=== PATIENT | female | born 1950 | race Caucasian/White ===

== ENCOUNTER 2017-04-25 19:06 | Emergency (ER) | payer MEDICARE, OTHER ==
[~2017-04-25] VITALS: Ht 167.6 cm; Wt 70.5 kg
[2017-04-25 19:12] VITALS: BP 165/86
[2017-04-25] MEDS ORDERED: MONT10TA2 (19:19)
[2017-04-25] MEDS ORDERED: tumeric PO (19:19)
[2017-04-25] MEDS ORDERED: VALS1TAB46 (19:19)
[2017-04-25] MEDS ORDERED: MULTLIQ7 PO (19:19)
[2017-04-25] MEDS ORDERED: FLUTISP (19:19)
--- NOTE | 2017-04-26 07:58 | REP ---
Left foot : There is no fracture or dislocation. Mineralization and joint spaces are normal. There are no calcifications or foreign bodies. Impression: Negative left foot. A calcaneal plantar spur is incidentally noted. . Signed by Chris Russell MD 04/26/2017 07:49 A
== END 2017-04-25 21:41 | disposition home or self-care (01) ==
LOC: M ED 19:06
DX: S93.602A Unspecified sprain of left foot, initial encounter (principal); J45.909 Unspecified asthma, uncomplicated; X58.XXXA Exposure to other specified factors, initial encounter; Y92.9 Unspecified place or not applicable; Y99.9 Unspecified external cause status; Z88.2 Allergy status to sulfonamides; Z79.899 Other long term (current) drug therapy

== ENCOUNTER → 2018-03-02 | Outpatient (REF) | payer MEDICARE, OTHER | LOC: M LAB REF 09:54 | DX: J02.9 Acute pharyngitis, unspecified (principal) | CPT/HCPCS: 87081 ==

== ENCOUNTER → 2018-06-24 | Outpatient (REF) | payer MEDICARE, OTHER ==
[2018-06-24 13:18] LABS: FERRITIN 40 NG/ML (8-252); IRON (FE) 95 UG/DL (50-170); PERCENT SATURATION 27.3 % (13.2-45.0); TOTAL IRON BINDING CAPACITY 348 UG/DL (250-450)
== END ==
LOC: M LAB REF 12:30
DX: D64.9 Anemia, unspecified (principal)
CPT/HCPCS: 83550

== ENCOUNTER → 2019-03-03 | Outpatient (REF) | payer MEDICARE, OTHER ==
[~2019-03-03] MED LIST: FLUTISP; MONT10TA2; MULTLIQ7 PO; VALS1TAB66; tumeric PO
[2019-03-03 19:14] LABS: PERCENT SATURATION 19.9 % (13.2-45.0)
== END ==
LOC: M LAB REF 17:02
PROVIDERS: ATTEND Internal Medicine
DX: D64.9 Anemia, unspecified (principal)

== ENCOUNTER → 2020-05-09 | Outpatient (REF) | payer MEDICARE, OTHER ==
[~2020-05-09] MED LIST changes: +IRBE150T7; -MONT10TA2; +MONT10TA4
[2020-06-23 12:02] LABS: PERCENT SATURATION 16.1 % (13.2-45.0)
== END ==
LOC: M LAB REF 16:50
PROVIDERS: ATTEND Internal Medicine
DX: D64.9 Anemia, unspecified (principal); G60.9 Hereditary and idiopathic neuropathy, unspecified

== ENCOUNTER 2020-06-12 11:03 | Emergency (ER) | payer MEDICARE, OTHER ==
[~2020-06-12] VITALS: Ht 165.1 cm; Wt 71.8 kg
[~2020-06-12 11:03] MED LIST changes: -IRBE150T7
[2020-06-12] MEDS ORDERED: IRBE150T7 (11:19)
[2020-06-12] MEDS ORDERED: ONDANSETRON 4MG/2ML VIAL IV ONE (11:30)
[2020-06-12] MEDS: MORPHINE 4 MG/ML 1ML VIAL/SYRINGE (J2270) IV PRN ×2 (11:41→12:22)
--- NOTE | 2020-06-12 11:49 | REPVR ---
PROCEDURE INFORMATION: Exam: XR Chest, 1 View Exam date and time: 06/12/2020 11:19 AM Age: 69 years old Clinical indication: Shortness of breath; Additional info: Chest pain TECHNIQUE: Imaging protocol: XR of the chest Views: Frontal portable sitting upright view of the chest. COMPARISON: No relevant prior studies available. FINDINGS: Tubes, catheters and devices: EKG leads are present overlying the chest. Lungs: Lingular pulmonary subsegmental atelectasis. The lungs are otherwise peripherally clear bilaterally. The pulmonary vasculature is normal. Pleural space: No pleural effusion. No pneumothorax. Heart/Mediastinum: The heart is normal in size and contour. Vasculature: Mild tortuosity of the lower descending thoracic aorta. Bones/joints: No acute abnormality identified. IMPRESSION: Lingular pulmonary subsegmental atelectasis. Electronically signed by: Mayur Stapleton On 06/12/2020 11:49:52 AM
[2020-06-12 11:52] LABS: BASO # 0.1 10^3/uL (0.0-0.2); BASO % 0.6 % (0.0-1.0); EOS # 0.2 10^3/uL (0.0-0.5); EOS % 1.9 % (0.0-3.0); HEMATOCRIT 35.3 % (36.0-47.0); HEMOGLOBIN 11.8 g/dl (12.0-15.5); LYMPH # 1.8 10^3/uL (1.5-5.0); LYMPH % 20.4 % (24.0-44.0); MEAN CORPUSCULAR HEMOGLOBIN 29.4 pg (27.0-33.0); MEAN CORPUSCULAR HGB CONC 33.4 g/dl (32.0-36.5); MEAN CORPUSCULAR VOLUME 87.8 fl (80.0-96.0); MONO # 0.8 10^3/uL (0.0-0.8); MONO % 9.3 % (0.0-5.0); NEUTROPHILS # 5.9 10^3/uL (1.5-8.5); NEUTROPHILS % 67.5 % (36.0-66.0); PLATELET COUNT, AUTOMATED 278 10^3/uL (150-450); RED BLOOD COUNT 4.02 10^6/uL (4.00-5.40); WHITE BLOOD COUNT 8.7 10^3/uL (4.0-10.0)
[2020-06-12] MEDS ORDERED: HEPARIN DRIP 25,000 UNITS in IV 1 EA IV SCH (11:53)
[2020-06-12] MEDS ORDERED: ISOVUE-370 76% 100ML VIAL As Ordered ONE (11:53)
[2020-06-12] MEDS ORDERED: TENECTEPLASE 50 MG KIT (TNKase) (J3101 PER 1MG) IV ONE (12:00)
[2020-06-12] MEDS ORDERED: CLOPIDOGREL 300 MG TAB (PLAVIX) PO ONE (12:00)
[2020-06-12] MEDS ORDERED: HEPARIN SOD (PORCINE) 5000UNITS/ML 1ML VIAL/SYRINGE IV ONE (12:00)
[2020-06-12 12:02] LABS: INR 0.92; PROTHROMBIN TIME 12.5 SECONDS (11.8-14.0)
[2020-06-12 12:23] LABS: ALBUMIN 3.6 GM/DL (3.2-5.2); ALT/SGPT 15 U/L (12-78); BILIRUBIN,DIRECT 0.1 MG/DL (0.0-0.2); BILIRUBIN,TOTAL 0.4 MG/DL (0.2-1.0); BLOOD UREA NITROGEN 27 MG/DL (7-18); CALCIUM LEVEL 9.3 MG/DL (8.8-10.2); CARBON DIOXIDE LEVEL 25 MEQ/L (21-32); CHLORIDE LEVEL 109 MEQ/L (98-107); CREATININE FOR GFR 0.94 MG/DL (0.55-1.30); GLOMERULAR FILTRATION RATE > 60.0 (>45); GLUCOSE, FASTING 136 MG/DL (70-100); LIPASE 79 U/L (73-393); NT-PRO BNP 204 PG/ML (<125); SODIUM LEVEL 140 MEQ/L (136-145); THYROID STIMULATING HORMONE 0.807 uIU/ML (0.358-3.740); TOTAL PROTEIN 6.9 GM/DL (6.4-8.2)
--- NOTE | 2020-06-12 12:26 | REPVR ---
PROCEDURE INFORMATION: Exam: CT Angiography Chest With Contrast Exam date and time: 06/12/2020 11:59 AM Age: 69 years old Clinical indication: Chest pain and other: R/O dissection; Type not specified; Additional info: R/O dissction TECHNIQUE: Imaging protocol: Computed tomographic angiography of the chest with intravenous contrast. 3D rendering (Not supervised by radiologist): MIP and/or 3D reconstructed images were created by the technologist. Radiation optimization: All CT scans at this facility use at least one of these dose optimization techniques: automated exposure control; mA and/or kV adjustment per patient size (includes targeted exams where dose is matched to clinical indication); or iterative reconstruction. Contrast material: ISOVUE 370; Contrast volume: 75 ml; Contrast route: INTRAVENOUS (IV); COMPARISON: CR PORTABLE CHEST X-RAY 06/12/2020 11:34 AM FINDINGS: Pulmonary arteries: Normal. No pulmonary emboli. Aorta: No aortic aneurysm. No aortic dissection. Thyroid: The bilateral thyroid lobes are unremarkable. Lungs: Unremarkable. No consolidation. No masses. Pleural space: No pneumothorax. No pleural effusion. Heart: Mild cardiac left ventricular enlargement. Atherosclerotic calcifications are present involving the RCA coronary artery. Lymph nodes: No enlarged lymph nodes. Bones/joints: Unremarkable. No acute fracture. Soft tissues: Unremarkable. IMPRESSION: 1. No thoracic aortic aneurysm or dissection identified. 2. No pulmonary embolism identified. 3. Mild cardiac left ventricular enlargement. 4. Coronary atherosclerosis. Electronically signed by: Myaur Stapleton On 06/12/2020 12:26:50 PM
[2020-06-12 13:25] VITALS: BP 106/68
[2020-06-12 15:19] LABS: PARTIAL THROMBOPLASTIN TIME 22.3 SECONDS (25.0-38.4)
[2020-06-12 15:31] LABS: CK-MB VALUE MASS < 1.0 NG/ML (<3.6); CPK CREATINE PHOSPHOKINASE 57 U/L (26-192); MB/CK RELATIVE INDEX 1.75 (< OR =4); TROPONIN I < 0.02 NG/ML (< 0.10)
--- NOTE | 2020-06-27 13:15 | ECGEPIP ---
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
--- NOTE | 2020-07-02 10:13 | ECGEPIP ---
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
== END 2020-06-12 13:30 | disposition short-term general hospital (02) ==
LOC: EDBD 11:03 → M ED 11:03
DX: I21.4 Non-ST elevation (NSTEMI) myocardial infarction (principal); I10 Essential (primary) hypertension; J30.89 Other allergic rhinitis; Z79.899 Other long term (current) drug therapy; Z88.1 Allergy status to other antibiotic agents; Z88.2 Allergy status to sulfonamides
CPT/HCPCS: 71045; 71275; 80047; 80048; 80076; 82550; 82553; 83690; 83880; 84443; 84484; 85025; 85610; 85730; 93005; 93041; 94760; 96374; 96375; 96376; 99291; J1644; J2270; J2405; J3101; Q9967; U0002

== ENCOUNTER → 2020-07-18 | Outpatient (CLI) | payer MEDICARE, OTHER ==
[~2020-07-18] MED LIST changes: +IRBE150T7
[2020-07-18 13:44] LABS: BASO % 0.9 % (0.0-1.0); EOS # 0.2 10^3/uL (0.0-0.5); EOS % 4.6 % (0.0-3.0); HEMATOCRIT 36.1 % (36.0-47.0); HEMOGLOBIN 11.4 g/dl (12.0-15.5); LYMPH # 0.9 10^3/uL (1.5-5.0); LYMPH % 20.4 % (24.0-44.0); MEAN CORPUSCULAR HEMOGLOBIN 28.6 pg (27.0-33.0); MEAN CORPUSCULAR HGB CONC 31.6 g/dl (32.0-36.5); MEAN CORPUSCULAR VOLUME 90.7 fl (80.0-96.0); MONO # 0.5 10^3/uL (0.0-0.8); MONO % 10.3 % (0.0-5.0); NEUTROPHILS # 2.8 10^3/uL (1.5-8.5); NEUTROPHILS % 63.6 % (36.0-66.0); PLATELET COUNT, AUTOMATED 257 10^3/uL (150-450); RED BLOOD COUNT 3.98 10^6/uL (4.00-5.40); WHITE BLOOD COUNT 4.4 10^3/uL (4.0-10.0)
[2020-07-18 13:50] LABS: ALBUMIN 3.8 GM/DL (3.2-5.2); BILIRUBIN,TOTAL 0.5 MG/DL (0.2-1.0); CALCIUM LEVEL 9.5 MG/DL (8.8-10.2); GLOMERULAR FILTRATION RATE 58.7 (>45); POTASSIUM SERUM 4.7 MEQ/L (3.5-5.1); TOTAL PROTEIN 6.6 GM/DL (6.4-8.2)
== END ==
LOC: M PLALAB 09:11
PROVIDERS: ATTEND Internal Medicine Cardiovascular Disease
DX: I50.42 Chronic combined systolic (congestive) and diastolic (congestive) heart failure (principal); I34.0 Nonrheumatic mitral (valve) insufficiency; I11.0 Hypertensive heart disease with heart failure

== ENCOUNTER → 2020-09-02 | Outpatient (CLI) | payer MEDICARE, OTHER ==
[~2020-09-02] MED LIST changes: -MONT10TA4; +MONT5TAB2
[2020-09-02 14:10] LABS: ALBUMIN 3.6 GM/DL (3.2-5.2); BLOOD UREA NITROGEN 20 MG/DL (7-18); CALCIUM LEVEL 9.3 MG/DL (8.8-10.2); CARBON DIOXIDE LEVEL 28 MEQ/L (21-32); CHLORIDE LEVEL 105 MEQ/L (98-107); CREATININE FOR GFR 0.97 MG/DL (0.55-1.30); GLOMERULAR FILTRATION RATE > 60.0 (>45); GLUCOSE, FASTING 95 MG/DL (70-100); NT-PRO BNP 4884 PG/ML (<125); PHOSPHORUS LEVEL 3.9 MG/DL (2.5-4.9); POTASSIUM SERUM 5.1 MEQ/L (3.5-5.1); SODIUM LEVEL 137 MEQ/L (136-145)
== END ==
LOC: M PLALAB 11:03
PROVIDERS: ATTEND Internal Medicine Cardiovascular Disease
DX: I50.42 Chronic combined systolic (congestive) and diastolic (congestive) heart failure (principal)

== ENCOUNTER → 2020-10-10 | Outpatient (CLI) | payer MEDICARE, OTHER ==
[2020-10-10 11:21] LABS: ALBUMIN 3.7 GM/DL (3.2-5.2); BLOOD UREA NITROGEN 23 MG/DL (7-18); CALCIUM LEVEL 9.1 MG/DL (8.8-10.2); CARBON DIOXIDE LEVEL 29 MEQ/L (21-32); CHLORIDE LEVEL 109 MEQ/L (98-107); CREATININE FOR GFR 0.88 MG/DL (0.55-1.30); GLOMERULAR FILTRATION RATE > 60.0 (>45); GLUCOSE, FASTING 67 MG/DL (70-100); NT-PRO BNP 3421 PG/ML (<125); PHOSPHORUS LEVEL 3.9 MG/DL (2.5-4.9); POTASSIUM SERUM 4.5 MEQ/L (3.5-5.1); SODIUM LEVEL 142 MEQ/L (136-145)
== END ==
LOC: M PLALAB 08:27
PROVIDERS: ATTEND Internal Medicine Cardiovascular Disease
DX: I50.42 Chronic combined systolic (congestive) and diastolic (congestive) heart failure (principal)

== ENCOUNTER → 2020-11-11 | Outpatient (REF) | payer MEDICARE, OTHER ==
[~2020-11-11] MED LIST changes: +MONT10TA10; -MONT5TAB2
[2020-11-11 14:42] LABS: PHOSPHORUS LEVEL 4.1 MG/DL (2.5-4.9)
== END ==
LOC: M LAB REF 11:26
PROVIDERS: ATTEND Internal Medicine
DX: I50.42 Chronic combined systolic (congestive) and diastolic (congestive) heart failure (principal)

== ENCOUNTER 2020-12-05 11:19 | Emergency (ER) | payer MEDICARE, OTHER ==
[~2020-12-05] VITALS: Ht 165.1 cm; Wt 69.6 kg
[2020-12-05] MEDS ORDERED: SUCCINYLCHOLINE 100 MG/5 ML SYRINGE (J0330) ONE (11:20)
[2020-12-05] MEDS ORDERED: LIDOCAINE 2% INJ 100 MG/5 ML SYRINGE ONE (11:20)
[2020-12-05] MEDS ORDERED: ETOMIDATE INJ 20MG/10ML VIAL ONE (11:20)
[2020-12-05] MEDS ORDERED: AMIODARONE HCL 150 MG in IV 1 EA IV STA ×2 (12:06→13:23)
--- NOTE | 2020-12-05 12:22 | REP ---
INDICATION: CHEST PAIN COMPARISON: 06/12/2020 TECHNIQUE: Portable AP view of the chest FINDINGS: The mediastinum and cardiac silhouette are stable and within normal limits for portable technique. The lung mendoza are clear without acute consolidation, effusion, or pneumothorax. Skeletal structures are intact. IMPRESSION: No acute cardiopulmonary process appreciated. <Electronically signed by Virgil Astorga > 12/05/20 [id number]
[2020-12-05 12:23] LABS: BASO # 0.1 10^3/uL (0.0-0.2); BASO % 0.7 % (0.0-1.0); EOS # 0.3 10^3/uL (0.0-0.5); EOS % 3.8 % (0.0-3.0); HEMATOCRIT 37.5 % (36.0-47.0); HEMOGLOBIN 12.2 g/dl (12.0-15.5); LYMPH # 0.9 10^3/uL (1.5-5.0); LYMPH % 12.3 % (24.0-44.0); MEAN CORPUSCULAR HEMOGLOBIN 29.8 pg (27.0-33.0); MEAN CORPUSCULAR HGB CONC 32.5 g/dl (32.0-36.5); MEAN CORPUSCULAR VOLUME 91.7 fl (80.0-96.0); MONO # 0.5 10^3/uL (0.0-0.8); MONO % 6.5 % (2.0-8.0); NEUTROPHILS # 5.9 10^3/uL (1.5-8.5); NEUTROPHILS % 76.4 % (36.0-66.0); PLATELET COUNT, AUTOMATED 261 10^3/uL (150-450); RED BLOOD COUNT 4.09 10^6/uL (4.00-5.40); WHITE BLOOD COUNT 7.7 10^3/uL (4.0-10.0)
[2020-12-05] MEDS ORDERED: ATOR80TA59 (12:25)
[2020-12-05] MEDS ORDERED: ASPI81CH33 (12:25)
[2020-12-05] MEDS ORDERED: ENTR1TAB7 (12:25)
[2020-12-05] MEDS ORDERED: NITR0.4S14 (12:25)
[2020-12-05] MEDS ORDERED: CLOP75TA2 (12:25)
[2020-12-05] MEDS ORDERED: CARV6.25 (12:25)
[2020-12-05] MEDS ORDERED: AMIODARONE HCL 360 MG in IV 1 EA IV SCH (12:30)
[2020-12-05] MEDS ORDERED: MAGNESIUM SULFATE 1GM/100ML D5W BAG (10MG/ML) As Ordered ONE (12:35)
[2020-12-05] MEDS ORDERED: AMIODARONE HCL 150 MG in IV 1 EA IV ONE (12:50)
[2020-12-05] MEDS ORDERED: MAG SULF 1GM/100ML (MAG RUN) 1 GM in IV 1 EA IV ONE (12:50)
[2020-12-05 12:51] LABS: ALT/SGPT 18 U/L (12-78); BILIRUBIN,DIRECT 0.2 MG/DL (0.0-0.2); BILIRUBIN,TOTAL 0.5 MG/DL (0.2-1.0); BLOOD UREA NITROGEN 27 MG/DL (7-18); CALCIUM LEVEL 9.5 MG/DL (8.8-10.2); CARBON DIOXIDE LEVEL 22 MEQ/L (21-32); CHLORIDE LEVEL 109 MEQ/L (98-107); CK-MB VALUE MASS < 1.0 NG/ML (<3.6); CPK CREATINE PHOSPHOKINASE 52 U/L (26-192); CREATININE FOR GFR 0.92 MG/DL (0.55-1.30); GLOMERULAR FILTRATION RATE > 60.0 (>45); GLUCOSE, FASTING 95 MG/DL (70-100); MAGNESIUM LEVEL 2.1 MG/DL (1.8-2.4); MB/CK RELATIVE INDEX 1.92 (< OR =4); POTASSIUM SERUM 4.2 MEQ/L (3.5-5.1); SODIUM LEVEL 140 MEQ/L (136-145); TOTAL PROTEIN 6.7 GM/DL (6.4-8.2); TROPONIN I 0.03 NG/ML (< 0.10)
[2020-12-05 13:49] LABS: RSV AMPLIFICATION NEGATIVE (NEGATIVE)
[2020-12-05] MEDS ORDERED: MIDAZOLAM INJ 2MG/2ML VIAL (J2250 PER 1MG) As Ordered ONE (13:49)
[2020-12-05] MEDS ORDERED: D5W As Ordered ONE (13:52)
[2020-12-05] MEDS ORDERED: LIDOCAINE As Ordered ONE (13:52)
[2020-12-05] MEDS ORDERED: MIDAZOLAM INJ 2MG/2ML VIAL (J2250 PER 1MG) IV STA (13:55)
[2020-12-05] MEDS ORDERED: LIDOCAINE 2GM IN D5W 500ML 2,000 MG in IV 1 EA IV SCH ×2 (13:55)
[2020-12-05] MEDS ORDERED: LIDOCAINE 2% INJ 100 MG/5 ML SYRINGE IV STA (14:01)
[2020-12-05] MEDS ORDERED: MIDAZOLAM INJ 2MG/2ML VIAL (J2250 PER 1MG) IV ONE (14:10)
[2020-12-05 14:15] VITALS: BP 97/59
[2020-12-05] MEDS ORDERED: ETOMIDATE INJ 20MG/10ML VIAL IV ONE (14:20)
[2020-12-05] MEDS ORDERED: SUCCINYLCHOLINE INJ 200 MG/10 ML VIAL (J0330) IV ONE (14:20)
--- NOTE | 2020-12-05 14:26 | REP ---
INDICATION: post intubation COMPARISON: 12/05/2020 TECHNIQUE: Portable AP view of the chest FINDINGS: Current examination is time stamped 12/05/2020 at 2:11 p.m. The endotracheal tube now appears to be in satisfactory position. Mediastinum and cardiac silhouette are relatively stable. The lung mendoza demonstrate diffusely increased interstitial markings which are nonspecific. No focal consolidation, effusion, or pneumothorax. Skeletal structures intact. IMPRESSION: Current examination demonstrates endotracheal tube in satisfactory position. <Electronically signed by Virgil Astorga > 12/05/20 [id number]
--- NOTE | 2020-12-05 14:27 | REP ---
INDICATION: post intubation COMPARISON: 12/05/2020 at 11:57 a.m. TECHNIQUE: Portable AP view of the chest FINDINGS: Current examination is time stamped 12/05/2020 at 2:09 p.m. Endotracheal tube at the refugio beginning to extend into the right mainstem bronchus requires repositioning. Mediastinum and cardiac silhouette are stable. Lung mendoza without focal consolidation, effusion, or pneumothorax. Skeletal structures intact. IMPRESSION: Endotracheal tube at the refugio beginning to extend into the right mainstem bronchus requires repositioning. <Electronically signed by Virgil Astorga > 12/05/20 [id number]
--- NOTE | 2020-12-06 08:05 | ECGEPIP ---
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
--- NOTE | 2020-12-06 08:06 | ECGEPIP ---
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
== END 2020-12-05 14:25 | disposition short-term general hospital (02) ==
LOC: EDBD 11:19 → M ED 11:19
DX: I47.2 Ventricular tachycardia (principal); I25.2 Old myocardial infarction; I10 Essential (primary) hypertension; Z97.8 Presence of other specified devices; E78.5 Hyperlipidemia, unspecified; Z95.5 Presence of coronary angioplasty implant and graft; Z88.2 Allergy status to sulfonamides; Z79.82 Long term (current) use of aspirin; Z79.899 Other long term (current) drug therapy
CPT/HCPCS: 31500; 71045; 80047; 80048; 80076; 82550; 82553; 83735; 84484; 85025; 85730; 87631; 92950; 93005; 93041; 94760; 96365; 96366; 96367; 96375; 96376; 99285; J0282; J0330; J2250; J3475

== ENCOUNTER → 2020-12-31 | Outpatient (CLI) | payer MEDICARE, OTHER ==
[~2020-12-31] MED LIST changes: +ASPI81CH33; +ATOR80TA59; +CARV6.25; +CLOP75TA2; +ENTR1TAB7; +NITR0.4S14
[2020-12-31 13:27] LABS: CALCIUM LEVEL 9.2 MG/DL (8.8-10.2); CREATININE FOR GFR 1.15 MG/DL (0.55-1.30); GLOMERULAR FILTRATION RATE 49.8 (>45); MAGNESIUM LEVEL 2.5 MG/DL (1.8-2.4); POTASSIUM SERUM 4.7 MEQ/L (3.5-5.1)
== END ==
LOC: M PLALAB 08:58
PROVIDERS: ATTEND Physician Assistant
DX: I50.42 Chronic combined systolic (congestive) and diastolic (congestive) heart failure (principal)

== ENCOUNTER → 2021-01-22 | Outpatient (REF) | payer MEDICARE, OTHER ==
[2021-01-22 14:11] LABS: CALCIUM LEVEL 9.7 MG/DL (8.8-10.2); CREATININE FOR GFR 1.13 MG/DL (0.55-1.30); GLOMERULAR FILTRATION RATE 50.8 (>45); MAGNESIUM LEVEL 2.4 MG/DL (1.8-2.4)
== END ==
LOC: M PLALAB 13:18
PROVIDERS: ATTEND Physician Assistant
DX: I50.42 Chronic combined systolic (congestive) and diastolic (congestive) heart failure (principal); I47.2 Ventricular tachycardia

== ENCOUNTER → 2021-04-08 | Outpatient (CLI) | payer MEDICARE, OTHER ==
[2021-04-08 10:42] LABS: ALBUMIN 3.8 GM/DL (3.2-5.2); BILIRUBIN,TOTAL 0.6 MG/DL (0.2-1.0); CALCIUM LEVEL 9.6 MG/DL (8.8-10.2); CHOLESTEROL RISK RATIO 2.377 (<5); CREATININE FOR GFR 1.26 MG/DL (0.55-1.30); GLOMERULAR FILTRATION RATE 44.8 (>45); MAGNESIUM LEVEL 2.5 MG/DL (1.8-2.4); TOTAL PROTEIN 7.2 GM/DL (6.4-8.2)
== END ==
LOC: M PLALAB 08:27
PROVIDERS: ATTEND Internal Medicine
DX: I50.42 Chronic combined systolic (congestive) and diastolic (congestive) heart failure (principal); I47.2 Ventricular tachycardia; I25.10 Atherosclerotic heart disease of native coronary artery without angina pectoris; Z79.82 Long term (current) use of aspirin

== ENCOUNTER → 2021-08-05 | Outpatient (CLI) | payer MEDICARE, OTHER ==
[2021-08-05 16:22] LABS: ALBUMIN 3.6 GM/DL (3.2-5.2); BILIRUBIN,TOTAL 0.4 MG/DL (0.2-1.0); CALCIUM LEVEL 9.7 MG/DL (8.8-10.2); CREATININE FOR GFR 1.24 MG/DL (0.55-1.30); GLOMERULAR FILTRATION RATE 45.7 (>45); MAGNESIUM LEVEL 2.3 MG/DL (1.8-2.4); POTASSIUM SERUM 4.7 MEQ/L (3.5-5.1); THYROID STIMULATING HORMONE 1.62 uIU/ML (0.358-3.740); TOTAL PROTEIN 6.5 GM/DL (6.4-8.2)
== END ==
LOC: M PLALAB 12:43
PROVIDERS: ATTEND Physician Assistant
DX: I47.2 Ventricular tachycardia (principal); I50.42 Chronic combined systolic (congestive) and diastolic (congestive) heart failure

== ENCOUNTER → 2022-01-01 | Outpatient (CLI) | payer MEDICARE, OTHER ==
[~2022-01-01] MED LIST changes: -MONT10TA10; +MONT10TA97
== END ==
LOC: M WHC 07:30
PROVIDERS: ATTEND Internal Medicine
DX: E05.90 Thyrotoxicosis, unspecified without thyrotoxic crisis or storm (principal)

== ENCOUNTER → 2022-02-03 | Outpatient (CLI) | payer MEDICARE, OTHER ==
[2022-02-03 11:02] LABS: BASO # 0.1 10^3/uL (0.0-0.2); BASO % 0.8 % (0.0-1.0); EOS # 0.2 10^3/uL (0.0-0.5); EOS % 2.7 % (0.0-3.0); HEMATOCRIT 37.2 % (36.0-47.0); LYMPH # 1.1 10^3/uL (1.5-5.0); LYMPH % 16.8 % (24.0-44.0); MEAN CORPUSCULAR HGB CONC 32.3 g/dl (32.0-36.5); MONO # 0.7 10^3/uL (0.0-0.8); NEUTROPHILS # 4.3 10^3/uL (1.5-8.5); NEUTROPHILS % 68.2 % (36.0-66.0); PLATELET COUNT, AUTOMATED 277 10^3/uL (150-450); WHITE BLOOD COUNT 6.3 10^3/uL (4.0-10.0)
[2022-02-03 11:40] LABS: ALBUMIN 3.5 GM/DL (3.2-5.2); BILIRUBIN,TOTAL 0.6 MG/DL (0.2-1.0); CREATININE FOR GFR 1.27 MG/DL (0.55-1.30); GLOMERULAR FILTRATION RATE 44.3 (>39); MAGNESIUM LEVEL 2.5 MG/DL (1.8-2.4); POTASSIUM SERUM 4.9 MEQ/L (3.5-5.1); TOTAL PROTEIN 6.4 GM/DL (6.4-8.2)
== END ==
LOC: M PLALAB 08:39
PROVIDERS: ATTEND Physician Assistant
DX: I50.42 Chronic combined systolic (congestive) and diastolic (congestive) heart failure (principal)

== ENCOUNTER → 2022-08-14 | Outpatient (CLI) | payer MEDICARE, OTHER ==
[2022-08-14 10:26] LABS: HEMATOCRIT 38.7 % (36.0-47.0); HEMOGLOBIN 12.2 g/dl (12.0-15.5); MEAN CORPUSCULAR HEMOGLOBIN 29.9 pg (27.0-33.0); MEAN CORPUSCULAR HGB CONC 31.5 g/dl (32.0-36.5); MEAN CORPUSCULAR VOLUME 94.9 fl (80.0-96.0); PLATELET COUNT, AUTOMATED 271 10^3/uL (150-450); RED BLOOD COUNT 4.08 10^6/uL (4.00-5.40); WHITE BLOOD COUNT 5.7 10^3/uL (4.0-10.0)
[2022-08-14 11:07] LABS: ALBUMIN 3.7 GM/DL (3.2-5.2); BILIRUBIN,TOTAL 0.6 MG/DL (0.2-1.0); CALCIUM LEVEL 9.1 MG/DL (8.8-10.2); CHOLESTEROL RISK RATIO 1.844 (<5); CREATININE FOR GFR 1.29 MG/DL (0.55-1.30); GLOMERULAR FILTRATION RATE 43.5 (>39); MAGNESIUM LEVEL 2.4 MG/DL (1.8-2.4); POTASSIUM SERUM 4.6 MEQ/L (3.5-5.1); TOTAL PROTEIN 6.6 GM/DL (6.4-8.2)
== END ==
LOC: M PLALAB 08:28
PROVIDERS: ATTEND Physician Assistant
DX: I50.42 Chronic combined systolic (congestive) and diastolic (congestive) heart failure (principal)

== ENCOUNTER → 2022-08-26 | Outpatient (CLI) | payer MEDICARE, OTHER | LOC: M PLAIMG 14:10 | PROVIDERS: ATTEND Physician Assistant | DX: I47.20 Ventricular tachycardia, unspecified (principal) ==

== ENCOUNTER → 2022-12-08 | Outpatient (REF) | payer MEDICARE, OTHER | LOC: M SFHCDERM 14:06 | PROVIDERS: ATTEND Dermatology | DX: Z48.89 Encounter for other specified surgical aftercare (principal); Z98.890 Other specified postprocedural states; Z79.899 Other long term (current) drug therapy ==

== ENCOUNTER → 2022-12-15 | Outpatient (REF) | payer MEDICARE, OTHER | LOC: M SFHCDERM 17:18 | PROVIDERS: ATTEND Dermatology | DX: Z48.02 Encounter for removal of sutures (principal) ==

== ENCOUNTER → 2023-01-08 | Outpatient (REF) | payer MEDICARE, OTHER ==
[~2023-01-08] MED LIST changes: +FLUT50SP17; -FLUTISP
[2023-01-08 14:22] LABS: PERCENT SATURATION 17.1 % (13.2-45.0)
[2023-01-08 14:23] LABS: FERRITIN 16.9 NG/ML (7.3-270.7)
== END ==
LOC: M LAB REF 12:03
PROVIDERS: ATTEND Internal Medicine
DX: D64.9 Anemia, unspecified (principal)

== ENCOUNTER → 2023-02-19 | Outpatient (REF) | payer MEDICARE, OTHER | LOC: M SFHCWAGY 12:56 | PROVIDERS: ATTEND Nurse Practitioner Family | DX: Z11.3 Encounter for screening for infections with a predominantly sexual mode of transmission (principal) ==

== ENCOUNTER → 2023-02-23 | Outpatient (CLI) | payer MEDICARE, OTHER ==
[2023-02-23 10:56] LABS: HEMATOCRIT 37.6 % (36.0-47.0); HEMOGLOBIN 11.7 g/dl (12.0-15.5); MEAN CORPUSCULAR HEMOGLOBIN 29.4 pg (27.0-33.0); MEAN CORPUSCULAR HGB CONC 31.1 g/dl (32.0-36.5); MEAN CORPUSCULAR VOLUME 94.5 fl (80.0-96.0); PLATELET COUNT, AUTOMATED 264 10^3/uL (150-450); RED BLOOD COUNT 3.98 10^6/uL (4.00-5.40); WHITE BLOOD COUNT 6.5 10^3/uL (4.0-10.0)
[2023-02-23 11:03] LABS: CALCIUM LEVEL 9.4 MG/DL (8.3-10.6); CREATININE FOR GFR 1.31 MG/DL (0.55-1.30); GLOMERULAR FILTRATION RATE 42.6 (>39); POTASSIUM SERUM 4.8 MMOL/L (3.5-5.1)
== END ==
LOC: M PLALAB 08:18
PROVIDERS: ATTEND Physician Assistant
DX: I25.5 Ischemic cardiomyopathy (principal); I25.10 Atherosclerotic heart disease of native coronary artery without angina pectoris; I50.42 Chronic combined systolic (congestive) and diastolic (congestive) heart failure

== ENCOUNTER → 2023-03-09 | Outpatient (CLI) | payer MEDICARE, OTHER ==
[2023-03-09 15:09] LABS: ALBUMIN 3.7 G/DL (3.2-5.2); ALKALINE PHOSPHATASE 49 U/L (46-116); ALT/SGPT < 9 U/L (7.0-40); AST/SGOT 12 U/L (<34); BILIRUBIN,DIRECT 0.2 MG/DL (<0.4); BILIRUBIN,TOTAL 0.5 MG/DL (0.3-1.2); TOTAL PROTEIN 6.2 G/DL (5.7-8.2)
== END ==
LOC: M PLAIMG 10:56
PROVIDERS: ATTEND Physician Assistant
DX: I47.20 Ventricular tachycardia, unspecified (principal); I50.42 Chronic combined systolic (congestive) and diastolic (congestive) heart failure

== ENCOUNTER → 2023-08-24 | Outpatient (CLI) | payer MEDICARE, OTHER ==
[2023-08-24 11:23] LABS: HEMATOCRIT 33.6 % (36.0-47.0); HEMOGLOBIN 10.9 g/dl (12.0-15.5); MEAN CORPUSCULAR HEMOGLOBIN 29.4 pg (27.0-33.0); MEAN CORPUSCULAR HGB CONC 32.4 g/dl (32.0-36.5); MEAN CORPUSCULAR VOLUME 90.6 fl (80.0-96.0); PLATELET COUNT, AUTOMATED 254 10^3/uL (150-450); RED BLOOD COUNT 3.71 10^6/uL (4.00-5.40); WHITE BLOOD COUNT 6.4 10^3/uL (4.0-10.0)
[2023-08-24 11:53] LABS: ALBUMIN 3.6 G/DL (3.2-5.2); BILIRUBIN,TOTAL 0.5 MG/DL (0.3-1.2); CALCIUM LEVEL 9.2 MG/DL (8.3-10.6); CHOLESTEROL RISK RATIO 2.45 (<5); CREATININE FOR GFR 1.24 MG/DL (0.55-1.30); GLOMERULAR FILTRATION RATE 45.4 (>39); HDL CHOLESTEROL 51.3 MG/DL (>40); LDL CHOLESTEROL 56.5 MG/DL (<100); MAGNESIUM LEVEL 2.2 MG/DL (1.8-2.4); NON-HDL-C 74.7 MG/DL; POTASSIUM SERUM 4.5 MMOL/L (3.5-5.1); TOTAL PROTEIN 6.4 G/DL (5.7-8.2)
[2023-08-24 11:56] LABS: THYROID STIMULATING HORMONE 0.04 uIU/ML (0.55-4.78)
== END ==
LOC: M PLALAB 07:39
PROVIDERS: ATTEND Physician Assistant
DX: I25.10 Atherosclerotic heart disease of native coronary artery without angina pectoris (principal); I47.20 Ventricular tachycardia, unspecified; I50.42 Chronic combined systolic (congestive) and diastolic (congestive) heart failure; E78.00 Pure hypercholesterolemia, unspecified

== ENCOUNTER → 2023-10-07 | Outpatient (CLI) | payer MEDICARE, OTHER ==
[~2023-10-07] MED LIST changes: -FLUT50SP17; +FLUTISP
[2023-10-07 10:17] LABS: HEMATOCRIT 35.3 % (36.0-47.0); HEMOGLOBIN 11.3 g/dl (12.0-15.5); MEAN CORPUSCULAR VOLUME 90.5 fl (80.0-96.0); PLATELET COUNT, AUTOMATED 250 10^3/uL (150-450); WHITE BLOOD COUNT 5.8 10^3/uL (4.0-10.0)
[2023-10-07 10:45] LABS: ALBUMIN 3.6 G/DL (3.2-5.2); ALKALINE PHOSPHATASE 53 U/L (46-116); ALT/SGPT < 9 U/L (7.0-40); AST/SGOT 15 U/L (<34); BILIRUBIN,TOTAL 0.4 MG/DL (0.3-1.2); BLOOD UREA NITROGEN 28 MG/DL (9-23); CALCIUM LEVEL 9.3 MG/DL (8.3-10.6); CARBON DIOXIDE LEVEL 27 MMOL/L (20-31); CHLORIDE LEVEL 110 MMOL/L (98-107); CHOLESTEROL LEVEL 120 MG/DL (<200); CHOLESTEROL RISK RATIO 2.31 (<5); CREATININE FOR GFR 1.25 MG/DL (0.55-1.30); GLUCOSE, FASTING 92 MG/DL (74-106); HDL CHOLESTEROL 51.8 MG/DL (>40); LDL CHOLESTEROL 56.8 MG/DL (<100); MAGNESIUM LEVEL 2.5 MG/DL (1.8-2.4); NON-HDL-C 68.2 MG/DL; POTASSIUM SERUM 4.8 MMOL/L (3.5-5.1); SODIUM LEVEL 141 MMOL/L (136-145); TOTAL PROTEIN 6.2 G/DL (5.7-8.2); TRIGLYCERIDES LEVEL 57 MG/DL (<150)
[2023-10-07 10:46] LABS: THYROID STIMULATING HORMONE 0.489 uIU/ML (0.55-4.78)
== END ==
LOC: M PLALAB 08:20
PROVIDERS: ATTEND Physician Assistant
DX: I25.10 Atherosclerotic heart disease of native coronary artery without angina pectoris (principal); I50.42 Chronic combined systolic (congestive) and diastolic (congestive) heart failure; E78.00 Pure hypercholesterolemia, unspecified; I47.20 Ventricular tachycardia, unspecified

== ENCOUNTER → 2023-11-19 | Outpatient (REF) | payer MEDICARE, OTHER ==
[~2023-11-19] MED LIST changes: +IRBE150T27; -IRBE150T7
== END ==
LOC: M LAB REF 12:31
PROVIDERS: ATTEND Nurse Practitioner Family
DX: Z12.4 Encounter for screening for malignant neoplasm of cervix (principal); R87.610 Atypical squamous cells of undetermined significance on cytologic smear of cervix (ASC-US)
CPT/HCPCS: 87624; G0123

== ENCOUNTER → 2023-12-14 | Outpatient (CLI) | payer MEDICARE, OTHER ==
[2023-12-14 14:27] LABS: HEMATOCRIT 36.9 % (36.0-47.0); HEMOGLOBIN 11.8 g/dl (12.0-15.5); MEAN CORPUSCULAR HEMOGLOBIN 29.1 pg (27.0-33.0); MEAN CORPUSCULAR VOLUME 91.1 fl (80.0-96.0); PLATELET COUNT, AUTOMATED 259 10^3/uL (150-450); RED BLOOD COUNT 4.05 10^6/uL (4.00-5.40)
[2023-12-14 14:29] LABS: CALCIUM LEVEL 8.7 MG/DL (8.3-10.6); CREATININE FOR GFR 1.21 MG/DL (0.55-1.30); GLOMERULAR FILTRATION RATE 46.6 (>39); POTASSIUM SERUM 4.7 MMOL/L (3.5-5.1)
== END ==
LOC: M PLALAB 10:28
PROVIDERS: ATTEND Physician Assistant
DX: I25.10 Atherosclerotic heart disease of native coronary artery without angina pectoris (principal)

== ENCOUNTER → 2024-02-01 | Outpatient (REF) | payer MEDICARE, OTHER ==
[2024-02-01 17:05] LABS: PERCENT SATURATION 11.4 % (13.2-45.0)
[2024-02-01 17:08] LABS: FERRITIN 3.8 NG/ML (7.3-270.7)
== END ==
LOC: M LAB REF 16:32
PROVIDERS: ATTEND Internal Medicine
DX: D50.9 Iron deficiency anemia, unspecified (principal)

== ENCOUNTER → 2024-02-09 | Outpatient (CLI) | payer MEDICARE, OTHER ==
[2024-02-09 13:51] LABS: FREE T4 1.41 NG/DL (0.89-1.76); THYROGLOBULIN ANTIBODY < 15.0 U/ML (<60.0); THYROID PEROXIDASE ANTIBODY 30 U/ML (<60.0); THYROID STIMULATING HORMONE 3.948 uIU/ML (0.55-4.78)
== END ==
LOC: M PLALAB 11:30
PROVIDERS: ATTEND Physician Assistant
DX: R94.6 Abnormal results of thyroid function studies (principal)

== ENCOUNTER → 2024-02-09 | Outpatient (CLI) | payer MEDICARE, OTHER ==
[2024-02-09 13:48] LABS: ALBUMIN 3.6 G/DL (3.2-5.2); BILIRUBIN,TOTAL 0.4 MG/DL (0.3-1.2); CALCIUM LEVEL 9.2 MG/DL (8.3-10.6); CREATININE FOR GFR 1.25 MG/DL (0.55-1.30); GLOMERULAR FILTRATION RATE 44.8 (>39); POTASSIUM SERUM 5.4 MMOL/L (3.5-5.1); TOTAL PROTEIN 6.3 G/DL (5.7-8.2)
[2024-02-09 13:50] LABS: THYROID STIMULATING HORMONE 3.871 uIU/ML (0.55-4.78)
== END ==
LOC: M PLALAB 11:27
PROVIDERS: ATTEND Physician Assistant
DX: I50.42 Chronic combined systolic (congestive) and diastolic (congestive) heart failure (principal); I47.20 Ventricular tachycardia, unspecified

== ENCOUNTER → 2024-02-21 | Outpatient (CLI) | payer MEDICARE, OTHER | LOC: M PLALAB 11:12 → M PLAIMG 11:12 | PROVIDERS: ATTEND Physician Assistant | DX: I47.20 Ventricular tachycardia, unspecified (principal) ==

== ENCOUNTER → 2024-06-08 | Outpatient (REF) | payer MEDICARE, OTHER ==
[~2024-06-08] MED LIST changes: +AMIO200T49 PO; +ASPI-226 PO; -ATOR80TA59; +ATOR80TA59 PO; -CLOP75TA2; +CLOP75TA2 PO; -ENTR1TAB7; +ENTR1TAB7 PO; +FAMO1TAB11 PO; +FARX1TAB3 PO; +FERR32TA PO; +METO1TAB32 PO; -NITR0.4S14; +NITR0.4S14 SL; +SPIR-10 PO
[2024-06-08 15:06] LABS: PERCENT SATURATION 35.5 % (13.2-45.0)
== END ==
LOC: M LAB REF 13:29
PROVIDERS: ATTEND Internal Medicine
DX: D64.9 Anemia, unspecified (principal)

== ENCOUNTER 2024-06-12 09:56 | Day surgery (SDC) | payer MEDICARE, OTHER ==
[~2024-06-12] VITALS: Ht 165.1 cm; Wt 60.0 kg
[~2024-06-12 09:56] MED LIST changes: +NS 1,000 ML IV ONE
[2024-06-12] MEDS ORDERED: propofoL 200 MG/20 ML VIAL As Ordered ONE (11:04)
[2024-06-12] MEDS ORDERED: fentaNYL 100 MCG/2 ML INJECTION As Ordered ONE (11:05)
[2024-06-12 12:28] VITALS: BP 112/56; O2SAT 97
== END 2024-06-12 12:39 | disposition home or self-care (01) ==
LOC: M OPP 09:56
PROVIDERS: ATTEND Internal Medicine Gastroenterology
DX: K64.0 First degree hemorrhoids (principal); D12.0 Benign neoplasm of cecum; D50.9 Iron deficiency anemia, unspecified; K31.89 Other diseases of stomach and duodenum; Z95.810 Presence of automatic (implantable) cardiac defibrillator; I50.9 Heart failure, unspecified; R07.9 Chest pain, unspecified; Z79.01 Long term (current) use of anticoagulants; Z79.02 Long term (current) use of antithrombotics/antiplatelets; Z79.1 Long term (current) use of non-steroidal anti-inflammatories (NSAID); Z79.51 Long term (current) use of inhaled steroids; Z79.52 Long term (current) use of systemic steroids; Z79.82 Long term (current) use of aspirin; Z79.899 Other long term (current) drug therapy
CPT/HCPCS: 43239; 45380; 88305; J3010

== ENCOUNTER → 2024-06-13 | Outpatient (CLI) | payer MEDICARE, OTHER ==
[~2024-06-13] MED LIST changes: -NS 1,000 ML IV ONE
== END ==
LOC: M PLAIMG 11:45
PROVIDERS: ATTEND Physician Assistant
DX: I47.20 Ventricular tachycardia, unspecified (principal)

== ENCOUNTER → 2024-08-02 | Outpatient (REF) | payer MEDICARE, OTHER ==
[2024-08-02 12:55] LABS: PERCENT SATURATION 33.5 % (13.2-45.0)
== END ==
LOC: M LAB REF 12:02
PROVIDERS: ATTEND Internal Medicine
DX: D64.9 Anemia, unspecified (principal)

== ENCOUNTER → 2024-08-07 | Outpatient (CLI) | payer MEDICARE, OTHER | LOC: M RAD 10:36 | PROVIDERS: ATTEND Internal Medicine | DX: I65.23 Occlusion and stenosis of bilateral carotid arteries (principal) ==

== ENCOUNTER → 2024-11-10 | Outpatient (CLI) | payer MEDICARE, OTHER | LOC: M PLAIMG 10:05 | PROVIDERS: ATTEND Physician Assistant | DX: I47.20 Ventricular tachycardia, unspecified (principal) ==

== ENCOUNTER → 2025-01-30 | Outpatient (REF) | payer MEDICARE, OTHER ==
[2025-02-01 16:12] LABS: HPV APTIMA Not Detected (Not Detected)
== END ==
LOC: M SFHCWAGY 15:34
PROVIDERS: ATTEND Advanced Practice Midwife
DX: Z01.419 Encounter for gynecological examination (general) (routine) without abnormal findings (principal); Z77.9 Other contact with and (suspected) exposures hazardous to health; N95.2 Postmenopausal atrophic vaginitis
CPT/HCPCS: 87624; G0123

== ENCOUNTER → 2025-01-31 | Outpatient (REF) | payer MEDICARE, OTHER ==
[2025-01-31 15:36] LABS: PERCENT SATURATION 41.5 % (13.2-45.0)
[2025-01-31 15:41] LABS: FERRITIN 36.6 NG/ML (7.3-270.7)
== END ==
LOC: M LAB REF 12:31
PROVIDERS: ATTEND Internal Medicine
DX: D64.9 Anemia, unspecified (principal)

== ENCOUNTER → 2025-05-22 | Outpatient (CLI) | payer MEDICARE, OTHER ==
[~2025-05-22] MED LIST changes: -AMIO200T49 PO; +AMIO200T54 PO
== END ==
LOC: M PLAIMG 11:24
PROVIDERS: ATTEND Physician Assistant
DX: I47.20 Ventricular tachycardia, unspecified (principal)

== ENCOUNTER → 2025-07-31 | Outpatient (REF) | payer MEDICARE, OTHER ==
[2025-07-31 13:04] LABS: IRON (FE) 66.0 UG/DL (50-170); PERCENT SATURATION 22.1 % (13.2-45.0)
== END ==
LOC: M LAB REF 11:56
PROVIDERS: ATTEND Internal Medicine
DX: D50.9 Iron deficiency anemia, unspecified (principal)

== ENCOUNTER → 2025-09-10 | Outpatient (CLI) | payer MEDICARE, OTHER ==
[2025-09-10 15:46] LABS: FREE T4 1.57 NG/DL (0.89-1.76)
== END ==
LOC: M PLALAB 12:12
PROVIDERS: ATTEND Nurse Practitioner Family
DX: R94.6 Abnormal results of thyroid function studies (principal)